=== PATIENT | male | born 1990 | race African-American/Black ===

== ENCOUNTER 2019-02-01 20:25 | Emergency (ER) | payer BC ==
[2019-02-01 20:35] VITALS: BP 121/79; PULSE 65; RESP 18; TEMP 98.9
[2019-02-01] MEDS ORDERED: LIDOCAINE 1% INJ 10MG/ML (20 ML MDV) SQ ONE (21:36)
--- NOTE | 2019-02-01 21:52 | CT ---
EXAMINATION: CT brain wo con DATE AND TIME: 02/01/2019 9:22 PM CLINICAL INDICATION: PHH; Pain TECHNIQUE: Standard departmental protocol.; 1129.4; COMPARISON: None. FINDINGS: The calvarium is intact. There is no intracranial hemorrhage. There is no intracranial mass or mass effect. No definite new intra-axial or extra-axial attenuation defect. The paranasal sinuses, middle ear cavities, and mastoid sinus air cells are clear. The orbits are unremarkable. IMPRESSION: NO ACUTE PROCESS.
[2019-02-01] MEDS ORDERED: KETOROLAC 30 MG/ML 1 ML VIAL IM STA (22:02)
[2019-02-01] MEDS ORDERED: ACET/COD 300 MG/30 MG STARTER PACK 6 TAB BTL PO STA (22:07)
--- NOTE | 2019-02-01 22:19 | XR ---
PROCEDURE: XR facial bones complete - 3V DATE AND TIME: 02/01/2019 9:22 PM CLINICAL INDICATION: PHH; Pain TECHNIQUE: AP Sequeira, AP Moscoso, and right lateral views COMPARISON: None FINDINGS: There is no fracture or malalignment. The soft tissues are unremarkable. IMPRESSION: NO ACUTE PROCESS.
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
== END 2019-02-01 23:30 | disposition home or self-care (01) ==
LOC: EC 20:25
DX: S01.81XA Laceration without foreign body of other part of head, initial encounter (principal); Y09 Assault by unspecified means; Y93.01 Activity, walking, marching and hiking
CPT/HCPCS: 70150; 70450; 99284; 12011; J2001; J1885

== ENCOUNTER 2022-03-24 19:25 | Emergency (ER) | payer BC ==
[2022-03-24 19:59] VITALS: BP 113/71; PULSE 68; RESP 18; TEMP 98.6
[2022-03-24] MEDS ORDERED: FLUCONAZOLE 100 MG TAB PO ONE (20:13)
[2022-03-24] MEDS ORDERED: valACYclovir HCL 1,000 MG TABLET PO STA (20:14)
--- NOTE | 2022-03-24 20:42 | ED ---
Male Urogenital HPI - General Chief complaint: Urogenital Stated complaint: Rash Time Seen by Provider: 03/24/22 20:00 Source: patient, RN notes reviewed Mode of arrival: ambulatory - History of Present Illness Initial comments: Patient with a known history of genital herpes and no history of immunosuppression presents to the emergency department today stating that he has an outbreak. Patient also has some cold sores around his mouth. Patient concerned that he might have a yeast infection she has some scaling on the shaft of his penis as well. Patient not recently sexually active. Patient is heterosexual. Denies any sex with men. No headache, no fever or chills, no changes in vision or hearing, no sore throat or difficulty with speech, no neck pain, no chest pain or shortness of breath, no abdominal pain, no nausea or vomiting, no changes in urination or bowel movements, no numbness or tingling, no extremity pain, no skin rashes or lesion s. Past medical, surgical, social, and family history reviewed. - Related Data Previous Rx's Medication Instructions Recorded Fluconazole [Diflucan] 150 mg PO DAILY #5 tab 03/24/22 Nystatin 1 applic TOPICAL BID #30 gram 03/24/22 valACYclovir HCL [Valacyclovir] 1,000 mg PO DAILY #5 tab 03/24/22 Allergies Allergy/AdvReac Type Severity Reaction Status Date / Time No Known Allergies Allergy Verified 02/01/19 20:35 Review of Systems ROS Statement: Those systems with pertinent positive or pertinent negative responses have been documented in the HPI. ROS Other: All systems not noted in ROS Statement are negative. Past Medical History Past Medical History: Asthma Additional Past Medical History / Comment(s): eczema, heart murmur as child, History of Any Multi-Drug Resistant Organisms: None Reported Past Surgical History: No Surgical Hx Reported Past Psychological History: No Psychological Hx Reported Smoking Status: Never smoker Past Alcohol Use History: Occasional Past Drug Use History: Marijuana General Exam - General Exam Comments Initial Comments: She does not appear to be ill or toxic. General appearance: alert, in no apparent distress Head exam: Present: atraumatic, normocephalic, normal inspection Eye exam: Present: normal appearance, PERRL, EOMI. Absent: scleral icterus, conjunctival injection, periorbital swelling ENT exam: Present: normal exam, normal oropharynx, mucous membranes dry, mucous membranes moist, normal external ear exam Neck exam: Present: normal inspection. Absent: tenderness, meningismus, lymphadenopathy Respiratory exam: Present: normal lung sounds bilaterally. Absent: respiratory distress, wheezes, rales, rhonchi, stridor, chest wall tenderness, accessory muscle use Cardiovascular Exam: Present: regular rate, normal rhythm, normal heart sounds. Absent: systolic murmur, diastolic murmur, rubs, gallop, clicks GI/Abdominal exam: Present: soft, normal bowel sounds. Absent: distended, tenderness, guarding, rebound, rigid Extremities exam: Present: normal inspection, full ROM, normal capillary refill. Absent: tenderness, pedal edema, joint swelling, calf tenderness Back exam: Present: normal inspection Neurological exam: Present: alert, oriented X3, CN II-XII intact Psychiatric exam: Present: normal affect, normal mood Skin exam: Present: warm, dry, intact, normal color. Absent: rash Course Vital Signs 03/24/22 19:57 Temperature 98.6 F Pulse Rate 68 Respiratory 18 Rate Blood Pressure 113/71 O2 Sat by Pulse 97 Oximetry Medical Decision Making - Medical Decision Making Patient had an episode of vomiting. I did add on a computed tomography scan abdomen and pelvis as the patient has abnormal urine, elevated lactate, and elevated white blood cell count. No definitive abdominal tenderness. Disposition Clinical Impression: Genital herpes simplex type 2, Tinea cruris Disposition: HOME SELF-CARE Condition: Good Instructions (If sedation given, give patient instructions): Genital Herpes Simplex (ED), Jock Itch (ED) Additional Instructions: No headache, no fever or chills, no changes in vision or hearing, no sore throat or difficulty with speech, no neck pain, no chest pain or shortness of breath, no abdominal pain, no nausea or vomiting, no changes in urination or bowel movements, no numbness or tingling, no extremity pain, no skin rashes or lesions. Past medical, surgical, social, and family history reviewed. Prescriptions: Fluconazole [Diflucan] 150 mg PO DAILY #5 tab Nystatin 1 applic TOPICAL BID #30 gram valACYclovir HCL [Valacyclovir] 1,000 mg PO DAILY #5 tab Is patient prescribed a controlled substance at d/c from ED?: No Referrals: Pramod Ellison [STAFF PHYSICIAN] - 03/28/22 Time of Disposition: 20:32
[2022-03-24 22:26] LABS: Appearance,Urine Clear (Clear); Bilirubin,Urine Negative (Negative); Blood,Urine Trace (Negative); Color,Urine Yellow; Glucose,Urine (UA) Negative (Negative); Ketones,Urine 1+ (Negative); Leukocyte Esterase,Urine Small (Negative); Mucus,Urine Few /hpf; Nitrite,Urine Negative (Negative); Protein,Urine 1+ (Negative); RBC,Urine 8 /hpf (0-5); Specific Gravity,Urine 1.034 (1.001-1.035); Squamous Epithelial Cell,Urine <1 /hpf (0-4); WBC,Urine 20 /hpf (0-5)
== END 2022-03-24 21:42 | disposition home or self-care (01) ==
LOC: EC 19:25
DX: A60.00 Herpesviral infection of urogenital system, unspecified (principal); B35.6 Tinea cruris; J45.909 Unspecified asthma, uncomplicated
CPT/HCPCS: 81001; 87086; 87491; 87591

== ENCOUNTER 2022-12-10 20:43 | Emergency (ER) | payer BC ==
[2022-12-10 20:47] VITALS: RESP 16
--- NOTE | 2022-12-10 21:04 | ED ---
General Adult HPI - General Chief complaint: Extremity Injury, Lower Stated complaint: Left Ankle Injury Time Seen by Provider: 12/10/22 20:53 Source: patient, RN notes reviewed Mode of arrival: ambulatory Limitations: no limitations - History of Present Illness Initial comments: 32-year-old male presents emergency department with chief complaint of complaint of left ankle pain. He states that he was skateboarding yesterday when he inverted his ankle and felt a pop. He states that he is having a hard time walking on it. His left ankle is significantly swollen. He states the pain is worse with walking and movement. He states that the pain is worse on the medial aspect of his left ankle. He denies taking any pain medications today. Denies any foot and toe pain, numbness and tingling. - Related Data Previous Rx's Medication Instructions Recorded Fluconazole [Diflucan] 150 mg PO DAILY #5 tab 03/24/22 Nystatin 1 applic TOPICAL BID #30 gram 03/24/22 valACYclovir HCL [Valacyclovir] 1,000 mg PO DAILY #5 tab 03/24/22 Allergies Allergy/AdvReac Type Severity Reaction Status Date / Time No Known Allergies Allergy Verified 12/10/22 20:47 Review of Systems ROS Statement: Those systems with pertinent positive or pertinent negative responses have been documented in the HPI. ROS Other: All systems not noted in ROS Statement are negative. Past Medical History Past Medical History: Asthma Additional Past Medical History / Comment(s): eczema, heart murmur as child, History of Any Multi-Drug Resistant Organisms: None Reported Past Surgical History: No Surgical Hx Reported Past Psychological History: No Psychological Hx Reported Smoking Status: Never smoker Past Alcohol Use History: Occasional Past Drug Use History: Marijuana General Exam Limitations: no limitations General appearance: alert, in no apparent distress Head exam: Present: atraumatic, normocephalic, normal inspection Eye exam: Present: normal appearance Neck exam: Present: normal inspection. Absent: tenderness, meningismus, lymphadenopathy Respiratory exam: Present: normal lung sounds bilaterally. Absent: respiratory distress, wheezes, rales, rhonchi, stridor Cardiovascular Exam: Present: regular rate, normal rhythm, normal heart sounds. Absent: systolic murmur, diastolic murmur, rubs, gallop, clicks Extremities exam: Present: tenderness (Medial left ankle tenderness), normal capillary refill, other (Medial left ankle tenderness, swelling, decreased range of motion of the left ankle, normal range of motion of toes and left knee, DP and PT pulses 2+). Absent: calf tenderness Neurological exam: Present: alert, oriented X3 Psychiatric exam: Present: normal affect, normal mood Skin exam: Present: warm, dry, intact, normal color. Absent: rash Course Vital Signs 12/10/22 12/10/22 20:44 22:02 Temperature 97.9 F 98.1 F Pulse Rate 77 71 Respiratory 16 16 Rate Blood Pressure 142/79 129/78 O2 Sat by Pulse 99 100 Oximetry Medical Decision Making - Medical Decision Making Was pt. sent in by a medical professional or institution (, PA, RUN LEAD, urgent care, hospital, or correction...) When possible be specific @ -No Did you speak to anyone other than the patient for history (EMS, parent, family, police, friend...)? What history was obtained from this source @ -No Did you review nursing and triage notes (agree or disagree)? Why? @ -I reviewed and agree with nursing and triage notes Were old charts reviewed (outside hosp., previous admission, EMS record, old EKG, old radiological studies, urgent care reports/EKG's, correction records)? Report findings @ -No old charts were reviewed Differential Diagnosis (chest pain, altered mental status, abdominal pain women, abdominal pain men, vaginal bleeding, weakness, fever, dyspnea, syncope, headache, dizziness, GI bleed, back pain, seizure, CVA, palpatations, mental health, musculoskeletal)? @ -Differential Musculoskeletal Muscular strain, contusion, ligament sprain, fracture, arthritis, septic arthritis, bursitis, cellulitis, muscle spasm, nerve compression, DVT, arterial occlusion, herpes zoster, electrolyte abnormality, tumor.... This is not meant to be in all inclusive list EKG interpreted by me (3pts min.). @ -None X-rays interpreted by me (1pt min.). @ -X-ray left ankle showed tiny bone fragments of the medial malleolus suspected product of an old avulsion fracture, lateral malleolus is intact, mild soft tissue swelling over the lateral malleolus CT interpreted by me (1pt min.). @ -None done U/S interpreted by me (1pt. min.). @ -None done What testing was considered but not performed or refused? (CT, X-rays, U/S, labs)? Why? @ -None What meds were considered but not given or refused? Why? @ -None Did you discuss the management of the patient with other professionals (professionals i.e. , PA, RUN LEAD, lab, RT, psych nurse, social welfare clerk, overcoil stepper, teacher, chief media officer, leather case finisher)? Give summary @ -No Was smoking cessation discussed for >3mins.? @ -No Was critical care preformed (if so, how long)? @ -No Were there social determinants of health that impacted care today? How? (Homelessness, low income, unemployed, alcoholism, drug addiction, transportation, low edu. Level, literacy, decrease access to med. care, penitentiary, rehab)? @ -No Was there de-escalation of care discussed even if they declined (Discuss DNR or withdrawal of care, Hospice)? DNR status @ -No What co-morbidities impacted this encounter? (DM, HTN, Smoking, COPD, CAD, Cancer, CVA, ARF, Chemo, Hep., AIDS, mental health diagnosis, sleep apnea, morbid obesity)? @ -None Was patient admitted / discharged? Hospital course, mention meds given and route, prescriptions, significant lab abnormalities, going to OR and other pertinent info. @ -Discharged. Patient presented to emergency department with left ankle pain 1 day after an inversion injury occurred while riding his skateboard. On exam patient has significant swelling to the lateral malleolus, DP and PT pulses 2+ and normal capillary refill. X-ray of left foot was obtained which showed tiny bone fragments at the medial malleolus suspected product of an old avulsion frac ture, lateral malleolus intact, mild soft tissue swelling over the lateral malleolus. Patient states that he has injured this ankle in the past. Patient was requesting crutches as he is a stairs to get to his apartment and feels that he is unable to walk up the stairs without crutches. Patient was advised to rest, ice, compress and elevate. Patient did not want a prescription for pain medication. Patient discharged in stable condition. Case discussed my attending, Dr. Pierce. Undiagnosed new problem with uncertain prognosis? @ -No Drug Therapy requiring intensive monitoring for toxicity (Heparin, Nitro, Insulin, Cardizem)? @ -No Were any procedures done? @ -No Diagnosis/symptom? @ -Left ankle sprain Acute, or Chronic, or Acute on Chronic? @ -Acute Uncomplicated (without systemic symptoms) or Complicated (systemic symptoms)? @ -Uncomplicated Side effects of treatment? @ -No Exacerbation, Progression, or Severe Exacerbation? @ -No Poses a threat to life or bodily function? How? (Chest pain, [place], [place], pneumonia, PE, COPD, DKA, ARF, appy, cholecystitis, CVA, Diverticulitis, Homicidal, Suicidal, threat to staff... and all critical care pts) @ -No Disposition Clinical Impression: Left ankle sprain Disposition: HOME SELF-CARE Condition: Stable Instructions (If sedation given, give patient instructions): Ankle Sprain (ED) Additional Instructions: Please return to the Emergency Department if symptoms worsen or any other concerns. Is patient prescribed a controlled substance at d/c from ED?: No Referrals: None,Stated [Primary Care Provider] - 1-2 days Abhijit Blanca MD [STAFF PHYSICIAN] - 1-2 days Time of Disposition: 21:48
--- NOTE | 2022-12-10 21:17 | XR ---
EXAMINATION TYPE: XR ankle complete LT DATE OF EXAM: 12/10/2022 CLINICAL HISTORY: Pain after inversion injury. TECHNIQUE: Three views of the left knee are obtained. COMPARISON: None. FINDINGS: Well-defined tiny bony fragments from the medial malleolus suspected product of old avulsi on fracture as there is no significant soft tissue swelling at this level. Lateral malleolus is intac t. Mild soft tissue swelling over the lateral malleolus is noted. The tri-compartment joint spaces a ppear within normal limits. IMPRESSION: As above. There is no acute fracture or dislocation in the left knee.
[2022-12-10 22:03] VITALS: BP 129/78; PULSE 71; TEMP 98.1
== END 2022-12-10 22:03 | disposition home or self-care (01) ==
LOC: EC 20:43
DX: S93.402A Sprain of unspecified ligament of left ankle, initial encounter (principal); J45.909 Unspecified asthma, uncomplicated; F12.90 Cannabis use, unspecified, uncomplicated; X50.1XXA Overexertion from prolonged static or awkward postures, initial encounter; Y93.51 Activity, roller skating (inline) and skateboarding
CPT/HCPCS: 99283

== ENCOUNTER 2023-10-02 12:34 | Emergency (ER) | payer BC ==
[2023-10-02 12:44] VITALS: TEMP 98.3
--- NOTE | 2023-10-02 13:39 | ED ---
Lower Extremity Injury HPI - General Chief Complaint: Extremity Injury, Lower Stated Complaint: pain in right ankle Time Seen by Provider: 10/02/23 13:35 Source: patient Mode of arrival: wheelchair Limitations: no limitations - History of Present Illness Initial Comments: Patient's a 33-year-old gentleman presents emergency room complaints of right ankle pain. Patient states that he rolled his ankle under the the leg on Friday, 5 days ago. He has had pain with ambulation since. He has swelling to the medial and lateral aspect of the ankle. Has had multiple ankle sprains in the past. Patient will be toes under the foot and ankle while skateboarding. He denies any proximal tib-fib pain. - Related Data Previous Rx's Medication Instructions Recorded Fluconazole [Diflucan] 150 mg PO DAILY #5 tab 03/24/22 Nystatin 1 applic TOPICAL BID #30 gram 03/24/22 valACYclovir HCL [Valacyclovir] 1,000 mg PO DAILY #5 tab 03/24/22 Allergies Allergy/AdvReac Type Severity Reaction Status Date / Time No Known Allergies Allergy Verified 10/02/23 12:38 Review of Systems ROS Statement: Those systems with pertinent positive or pertinent negative responses have been documented in the HPI. ROS Other: All systems not noted in ROS Statement are negative. Past Medical History Past Medical History: Asthma Additional Past Medical History / Comment(s): eczema, heart murmur as child, History of Any Multi-Drug Resistant Organisms: None Reported Past Surgical History: No Surgical Hx Reported Past Psychological History: No Psychological Hx Reported Smoking Status: Never smoker Past Alcohol Use History: Occasional Past Drug Use History: Marijuana General Exam Limitations: no limitations General appearance: alert, in no apparent distress Head exam: Present: atraumatic Eye exam: Present: normal appearance Neck exam: Present: full ROM Extremities exam: Present: full ROM, tenderness (Pain over the right high ankle area worse over the fibula.. Pain is worse with palpation of the rig lateral and medial malleolus ht), joint swelling (Swelling of the medial and lateral malleolus without any erythema or ecchymosis. Compartments are soft.) Neurological exam: Present: alert, oriented X3 Psychiatric exam: Present: normal affect, normal mood Skin exam: Present: warm, dry Course Vital Signs 10/02/23 12:36 Temperature 98.3 F Pulse Rate 68 Respiratory 18 Rate Blood Pressure 101/70 O2 Sat by Pulse 99 Oximetry - Reevaluation(s) Reevaluation #1: 10/02/23 14:35 Patient placed in ankle stirrup splint was ordered. Discussed with exacerbation. He has crutches to use as needed. Discussed with him. He understands and agrees to treatment discharge plan. Medical Decision Making - Medical Decision Making Was pt. sent in by a medical professional or institution (, JOSE, MANAGER OPERATING, urgent care, hospital, or retirement...) When possible be specific @ -[No] Did you speak to anyone other than the patient for history (EMS, parent, family, police, friend...)? What history was obtained from this source @ -[No] Did you review nursing and triage notes (agree or disagree)? Why? @ -[I reviewed and agree with nursing and triage notes] Were old charts reviewed (outside hosp., previous admission, EMS record, old EKG, old radiological studies, urgent care reports/EKG's, retirement records)? Report findings @ -[No old charts were reviewed] Differential Diagnosis (chest pain, altered mental status, abdominal pain women, abdominal pain men, vaginal bleeding, weakness, fever, dyspnea, syncope, headache, dizziness, GI bleed, back pain, seizure, CVA, palpatations, mental health, musculoskeletal)? @ -Right ankle sprain, fibular fracture, tibial fracture EKG interpreted by me (3pts min.). @ -[As above] X-rays interpreted by me (1pt min.). @ -X-ray shows soft tissue swelling without any obvious acute fractures of the ankle. There is a small suspected avulsion fracture that is chronic in nature seen. Likely from previous ankle sprains he had mentioned CT interpreted by me (1pt min.). @ -[None done] U/S interpreted by me (1pt. min.). @ -[None done] What testing was considered but not performed or refused? (CT, X-rays, U/S, labs)? Why? @ -[None] What meds were considered but not given or refused? Why? @ -[Patient does not require narcotic pain medication at this time as he has been ambulating for 5 days. Did you discuss the management of the patient with other professionals (professionals i.e. , JOSE, MANAGER OPERATING, lab, RT, psych nurse, social group worker, digital media designer, teacher, logistics supply officer, special education case manager)? Give summary @ -[No] Was smoking cessation discussed for >3mins.? @ -[No] Was critical care preformed (if so, how long)? @ -[No] Were there social determinants of health that impacted care today? How? (Homelessness, low income, unemployed, alcoholism, drug addiction, transportation, low edu. Level, literacy, decrease access to med. care, long-term, rehab)? @ -[No] Was there de-escalation of care discussed even if they declined (Discuss DNR or withdrawal of care, Hospice)? DNR status @ -[No] What co-morbidities impacted this encounter? (DM, HTN, Smoking, COPD, CAD, Cancer, CVA, ARF, Chemo, Hep., AIDS, mental health diagnosis, sleep apnea, morbid obesity)? @ -[None] Was patient admitt hospital course] Patient is stable to follow up as an outpatient and does not require hospitalization at this time. He may follow up with specialist as an outpatient. Undiagnosed new problted / discharged? Hospital course, mention meds given and route, prescriptions, significant lab abnormalities, going to OR and other pertinent info. @ -[em with uncertain prognosis? @ -[No] Drug Therapy requiring intensive monitoring for toxicity (Heparin, Nitro, Insulin, Cardizem)? @ -[No] Were any procedures done? @ -[No] Diagnosis/symptom? @ -[Right ankle sprain Acute, or Chronic, or Acute on Chronic? @ -[Acute Uncomplicated (without systemic symptoms) or Complicated (systemic symptoms)? @ -[default] Side effects of treatment? @ -[No] Exacerbation, Progression, or Severe Exacerbation? @ -[No] Poses a threat to life or bodily function? How? (Chest pain, [place], [place], pneumonia, PE, COPD, DKA, ARF, appy, cholecystitis, CVA, Diverticulitis, Homicidal, Suicidal, threat to staff... and all critical care pts) @ -[No] - Radiology Data Radiology results: report reviewed, image reviewed Disposition Clinical Impression: Ankle sprain Disposition: HOME SELF-CARE Condition: Good Instructions (If sedation given, give patient instructions): Ankle Sprain (ED) Is patient prescribed a controlled substance at d/c from ED?: No If prescribed controlled substance>3 days was MAPS reviewed?: No Referrals: None,Stated [Primary Care Provider] - 1-2 days Irvin Turcios MD [STAFF PHYSICIAN] - 1-2 days Time of Disposition: 14:30
--- NOTE | 2023-10-02 14:05 | XR ---
EXAMINATION TYPE: XR ankle complete RT DATE OF EXAM: 10/02/2023 COMPARISON: NONE HISTORY: Pain FINDINGS: Three views of the ankle demonstrate the ankle mortise to be intact and symmetric. Diffuse soft tissu e edema. Bony density along the medial malleolus likely is chronic. IMPRESSION: 1. Diffuse soft tissue edema. No definite acute fracture. Suspect a bony density adjacent to the medi al malleolus is chronic.
[2023-10-02 14:53] VITALS: BP 97/69; PULSE 62; RESP 16
== END 2023-10-02 14:48 | disposition home or self-care (01) ==
LOC: EC 12:34
DX: S93.401A Sprain of unspecified ligament of right ankle, initial encounter (principal); J45.909 Unspecified asthma, uncomplicated; F12.90 Cannabis use, unspecified, uncomplicated; X50.0XXA Overexertion from strenuous movement or load, initial encounter
CPT/HCPCS: 73610; 99283; L4350

== ENCOUNTER 2024-12-02 18:41 | Emergency (ER) | payer BC ==
[2024-12-02 18:48] VITALS: RESP 18; TEMP 98.2
--- NOTE | 2024-12-02 19:27 | ED ---
General Adult HPI - General Source: patient Mode of arrival: ambulatory Limitations: no limitations <Shireen Fitzpatrick - Last Filed: 12/02/24 21:06> <Christopher Pop - Last Filed: 12/03/24 19:42> - General Chief complaint: ENT Stated complaint: Sore throat,abd pain Time Seen by Provider: 12/02/24 18:57 - History of Present Illness Initial comments: 34-year-old male presenting with sore throat and subjective fever. Patient reports he has penile discharge which he reports is white. This having a new partner but states he used protection. Patient denies nausea, vomiting, diarrhea, or abdominal pain. (Shireen Fitzpatrick) - Related Data Previous Rx's Medication Instructions Recorded Fluconazole [Diflucan] 150 mg PO DAILY #5 tab 03/24/22 Nystatin 1 applic TOPICAL BID #30 gram 03/24/22 valACYclovir HCL [Valacyclovir] 1,000 mg PO DAILY #5 tab 03/24/22 Cephalexin [Keflex] 500 mg PO Q12HR 7 Days #14 cap 12/02/24 Allergies Allergy/AdvReac Type Severity Reaction Status Date / Time No Known Allergies Allergy Verified 12/02/24 18:48 Review of Systems ROS Other: All systems not noted in ROS Statement are negative. Constitutional: Reports: fever (subjective). Denies: chills Respiratory: Denies: cough, dyspnea Cardiovascular: Denies: chest pain, palpitations Endocrine: Denies: fatigue Gastrointestinal: Denies: abdominal pain, nausea, vomiting, diarrhea Genitourinary: Denies: urgency, dysuria Musculoskeletal: Denies: back pain Skin: Denies: rash, lesions <Shireen Fitzpatrick - Last Filed: 12/02/24 21:06> ROS Other: All systems not noted in ROS Statement are negative. <Christopher Pop - Last Filed: 12/03/24 19:42> ROS Statement: Those systems with pertinent positive or pertinent negative responses have been documented in the HPI. Past Medical History Past Medical History: Asthma Additional Past Medical History / Comment(s): eczema, heart murmur as child, History of Any Multi-Drug Resistant Organisms: None Reported Past Surgical History: No Surgical Hx Reported Past Psychological History: No Psychological Hx Reported Smoking Status: Never smoker Past Alcohol Use History: Occasional Past Drug Use History: Marijuana <Shireen Fitzpatrick - Last Filed: 12/02/24 21:06> General Exam Limitations: no limitations General appearance: alert, in no apparent distress Respiratory exam: Present: normal lung sounds bilaterally. Absent: respiratory distress Cardiovascular Exam: Present: regular rate, normal rhythm GI/Abdominal exam: Present: soft. Absent: distended, tenderness exam: Present: urethral discharge Neurological exam: Present: alert, oriented X3 Psychiatric exam: Present: normal affect, normal mood Skin exam: Present: warm, dry, intact <Shireen Fitzpatrick - Last Filed: 12/02/24 21:06> Course Vital Signs 12/02/24 12/02/24 18:44 21:33 Temperature 98.2 F Pulse Rate 77 83 Respiratory 18 18 Rate Blood Pressure 122/85 119/83 O2 Sat by Pulse 97 100 Oximetry Medical Decision Making <Shireen Fitzpatrick - Last Filed: 12/02/24 21:06> <Christopher Pop - Last Filed: 12/03/24 19:42> - Medical Decision Making Was pt. sent in by a medical professional or institution (Dr. PA, NURSERY LABORER, urgent care, hospital, or assisted...) When possible be specific @ -No Did you speak to anyone other than the patient for history (EMS, parent, family, police, friend...)? What history was obtained from this source @ -No Did you review nursing and triage notes (agree or disagree)? Why? @ -I reviewed and agree with nursing and triage notes Were old charts reviewed (outside hosp., previous admission, EMS record, old EKG, old radiological studies, urgent care reports/EKG's, assisted records)? Report findings @ -No old charts were reviewed Differential Diagnosis? @ -UTI, STI, nephrolithiasis, this is not an all-inclusive list. EKG interpreted by me (3pts min.). @ -As above X-rays interpreted by me (1pt min.). @ -None done CT interpreted by me (1pt min.). @ -None done U/S interpreted by me (1pt. min.). @ -None done What testing was considered but not performed or refused? (CT, X-rays, U/S, labs)? Why? @ -None What meds were considered but not given or refused? Why? @ -None Did you discuss the management of the patient with other professionals (professionals i.e. Dr., PA, NURSERY LABORER, lab, RT, psych nurse, social sciences chair, eye surgeon, teacher, patrol community service officer, field case manager)? Give summary @ -Case discussed with ED attending Dr. Pop. Was smoking cessation discussed for >3mins.? @ -No Was critical care preformed (if so, how long)? @ -No Were there social determinants of health that impacted care today? How? (Homelessness, low income, unemployed, alcoholism, drug addiction, transportation, low edu. Level, literacy, decrease access to med. care, group home, rehab)? @ -No Was there de-escalation of care discussed even if they declined (Discuss DNR or withdrawal of care, Hospice)? DNR status @ -No What co-morbidities impacted this encounter? (DM, HTN, Smoking, COPD, CAD, Cancer, CVA, ARF, Chemo, Hep., AIDS, mental health diagnosis, sleep apnea, morbid obesity)? @ -None Was patient admitted / discharged? Hospital course, mention meds given and route, prescriptions, significant lab abnormalities, going to OR and other pertinent info. @ -Patient will be discharged home with self-care. Patient to take antibiotics for 1 week. PCR for GC pending we will follow-up and call patient if positive. Undiagnosed new problem with uncertain prognosis? @ -No Drug Therapy requiring intensive monitoring for toxicity (Heparin, Nitro, Insulin, Cardizem)? @ -No Were any procedures done? @ -No Diagnosis/symptom? @ -UTI Acute, or Chronic, or Acute on Chronic? @ -Acute Uncomplicated (without systemic symptoms) or Complicated (systemic symptoms)? @ -Default Side effects of treatment? @ -No Exacerbation, Progression, or Severe Exacerbation? @ -No Poses a threat to life or bodily function? How? (Chest pain, [place], [place], pneumonia, PE, COPD, DKA, ARF, appy, cholecystitis, CVA, Diverticulitis, Homicidal, Suicidal, threat to staff... and all critical care pts) @ -No (Shireen Fitzpatrick) I personally saw the patient and performed the critical portion of the service. I discussed the patient care with the resident. I directed management, care planning and final disposition of the patient. This includes, but not limited to, review of all lab work, radiological studies, EKG's, consultations, vital signs, and nursing notes. EKG interpreted by me (3pts min.) @As above X-Rays interpreted by me (1 pt min.) @None CT interpreted by me ( 1pt min.) @None U/S interpreted by me (1 pt min.) @None Critical care time of 0 minutes excluding separately billable procedures was spent in conjunction with critical care activities provided by the Resident and Attending simultaneously. I was present during no procedures for all critical portions of the procedure and as immediately available to furnish service during the entire procedure. (Christopher Pop) - Lab Data Lab Results 12/02/24 12/02/24 Range/Units 20:18 20:18 Urine Color Yellow Urine Appearance Clear (Clear) Urine pH 6.0 (5.0-8.0) Ur Specific [place] 1.033 (1.001-1.035) Urine Protein Trace H (Negative) Urine Glucose (UA) Negative (Negative) Urine Ketones 1+ H (Negative) Urine Blood Negative (Negative) Urine Nitrite Negative (Negative) Urine Bilirubin 1+ H (Negative) Urine Urobilinogen 2.0 (<2.0) mg/dL Ur Leukocyte Esterase Large H (Negative) Urine RBC 5 (0-5) /hpf Urine WBC 55 H (0-5) /hpf Urine Mucus Many H (None) /hpf Chlamydia DNA (PCR) Negative (Negative) N.gonorrhoeae DNA Probe Negative (Negative) Disposition Is patient prescribed a controlled substance at d/c from ED?: No Time of Disposition: 20:00 <Shireen Fitzpatrick - Last Filed: 12/02/24 21:06> <Christopher Pop - Last Filed: 12/03/24 19:42> Clinical Impression: Urinary tract infection in male Disposition: HOME SELF-CARE Condition: Good Prescriptions: Cephalexin [Keflex] 500 mg PO Q12HR 7 Days #14 cap Referrals: None,Stated [Primary Care Provider] - 1-2 days
[2024-12-02 20:28] LABS: Appearance,Urine Clear (Clear); Bilirubin,Urine 1+ (Negative); Blood,Urine Negative (Negative); Color,Urine Yellow; Glucose,Urine (UA) Negative (Negative); Ketones,Urine 1+ (Negative); Leukocyte Esterase,Urine Large (Negative); Mucus,Urine Many /hpf; Nitrite,Urine Negative (Negative); Protein,Urine Trace (Negative); RBC,Urine 5 /hpf (0-5); Specific Gravity,Urine 1.033 (1.001-1.035); WBC,Urine 55 /hpf (0-5)
[2024-12-02 21:34] VITALS: BP 119/83; PULSE 83
[2024-12-03 13:46] LABS: C. trachomatis,PCR Negative (Negative); N. gonorrhoeae,PCR Negative (Negative)
== END 2024-12-02 21:41 | disposition home or self-care (01) ==
LOC: EC 18:41
DX: N39.0 Urinary tract infection, site not specified (principal)
CPT/HCPCS: 81001; 87086; 87491; 87591; 99284